=== PATIENT | female | born 1985 | race Caucasian/White ===

== ENCOUNTER 2016-10-14 11:24 | Outpatient (CLI) | payer OTHER | END 2016-10-14 11:25 | disposition home or self-care (01) | DX: M79.89 Other specified soft tissue disorders (principal); Z98.890 Other specified postprocedural states ==

== ENCOUNTER 2017-04-27 09:05 | Outpatient (CLI) | payer OTHER ==
[2017-04-27 11:56] LABS: BASOPHILS # (AUTO) 0.1 10^3/uL (0.0-0.1); EOSINOPHILS # (AUTO) 0.1 10^3/uL (0.0-0.7); EOSINOPHILS % (AUTO) 1.3 %; HCT - HEMATOCRIT 40.2 % (37.0-47.0); HGB - HEMOGLOBIN 13.2 g/dL (12.0-16.0); LYMPHOCYTES # (AUTO) 2.1 10^3/uL (1.5-3.5); LYMPHOCYTES % (AUTO) 19.3 %; MEAN CORPUSCULAR HEMOGLOBIN 31.8 pg (27.0-31.0); MEAN CORPUSCULAR HGB CONC 32.8 g/dL (32.0-36.0); MEAN PLATELET VOLUME 9.1 fL (7.9-10.8); MONOCYTES # (AUTO) 0.5 10^3/uL (0.0-1.0); MONOCYTES % (AUTO) 4.8 %; NEUTROPHILS # (AUTO) 8.1 10^3/uL (1.5-6.6); NEUTROPHILS % (AUTO) 73.6 %; NUCLEATED RED BLOOD CELLS AUTO 0.1 /100WBC; RED BLOOD COUNT 4.15 10^6/uL (4.20-5.40); RED CELL DISTRIBUTION WIDTH 12.3 % (12.0-15.0); UNCORRECTED WHITE BLOOD COUNT 11.1 x10^3/uL; WHITE BLOOD COUNT 11.1 x10^3/uL (4.8-10.8)
[2017-04-27 12:04] LABS: ALBUMIN/GLOBULIN RATIO 1.2 (1.0-2.2); BILIRUBIN,TOTAL 0.4 mg/dL (0.2-1.0); CALCIUM 8.9 mg/dL (8.5-10.3); CREATININE 0.6 mg/dL (0.4-1.0); POTASSIUM 4.4 mmol/L (3.5-5.0); TOTAL PROTEIN 6.9 g/dL (6.7-8.2)
== END 2017-04-27 09:06 | disposition home or self-care (01) ==
LOC: LAB.F 09:05
PROVIDERS: ATTEND Physician Assistant Medical
DX: H92.01 Otalgia, right ear (principal); R59.1 Generalized enlarged lymph nodes; R19.7 Diarrhea, unspecified
CPT/HCPCS: 36415; 80053; 85025

== ENCOUNTER 2019-09-04 09:18 | Outpatient (CLI) | payer OTHER ==
--- NOTE | 2019-09-04 23:19 | Ultrasound Report ---
Reason: POSITIVE TEST Procedure Date: 09/04/2019 Accession Number: [id number] / [id number] Procedure: US - OB First Trimester CPT Code: Final Report FULL RESULT: EXAM: FIRST TRIMESTER OBSTETRIC ULTRASOUND (Less than 11 weeks) EXAM DATE: 09/04/2019 10:07 AM. CLINICAL HISTORY: POSITIVE TEST. Dating. Clinical dates: LMP: 07/01/2019, EGA 9 weeks 2 days, ANY 04/06/20. COMPARISONS: None. TECHNIQUE: Transabdominal and transvaginal ultrasound examination with static image documentation. ASSESSMENT: Gestational Sac: Single intrauterine. Mean gestational sac diameter: 21 mm = 7 weeks 0 days, ANY 04/22/2020. Embryo: CRL (crown-rump length) 14.1 mm = EGA 7 weeks 5 days, ANY 04/17/2020. Cardiac activity: 149 beats per minute. Yolk sac: 3.1 mm. Amniotic fluid: Not accurately assessed at this gestational age. Early placenta: Not visible at this gestational age. Other: No perigestational fluid collection demonstrated. MATERNAL STRUCTURES: Uterus: Anteverted. Unremarkable. Cervix: Closed. Right Ovary/Adnexa: The ovary measures 2.6 x 2.5 x 1.7 cm, volume 5.8 cc. Unremarkable. Left Ovary/Adnexa: The ovary measures 2.3 x 1.2 x 1.5 cm, volume 2.2 cc. Unremarkable. Free Fluid: Small free fluid seen in the posterior cul-de-sac. IMPRESSION: 1. Single living intrauterine . Embryo: CRL (crown-rump length) 14.1 mm = EGA 7 weeks 5 days, ANY 04/17/2020. No acute findings are seen. 2. Small free fluid in the posterior cul-de-sac. RADIA
== END 2019-09-04 09:19 | disposition home or self-care (01) ==
LOC: DI 09:18
PROVIDERS: ATTEND Advanced Practice Midwife
DX: Z32.01 Encounter for pregnancy test, result positive (principal)
CPT/HCPCS: 76801; 76817

== ENCOUNTER 2019-09-22 08:00 | Outpatient (CLI) | payer OTHER ==
[2019-09-22 19:33] LABS: TRICHOMONAS VAGINALIS DNA NEGATIVE (NEGATIVE)
== END 2019-09-22 23:59 | disposition home or self-care (01) ==
LOC: LAB.R 08:00
PROVIDERS: ATTEND Advanced Practice Midwife
DX: Z34.90 Encounter for supervision of normal pregnancy, unspecified, unspecified trimester (principal); Z11.3 Encounter for screening for infections with a predominantly sexual mode of transmission
CPT/HCPCS: 80306; 81001; 87491; 87591; 87661

== ENCOUNTER 2019-09-22 13:26 | Outpatient (CLI) | payer OTHER ==
[2019-09-22 14:50] LABS: MUDS CUTOFF CONCENTRATIONS CUTOFF CONC BELOW:
[2019-09-22 16:34] LABS: BILIRUBIN,URINE NEGATIVE (NEGATIVE); GLUCOSE, URINE (UA) NEGATIVE (NEGATIVE); KETONES,URINE (UA) NEGATIVE (NEGATIVE); LEUKOCYTE ESTERASE, URINE MODERATE (NEGATIVE); NITRITE,URINE NEGATIVE (NEGATIVE); OCCULT BLOOD,URINE NEGATIVE (NEGATIVE); PROTEIN,URINE NEGATIVE (NEGATIVE); UROBILINOGEN,URINE 0.2 (NORMAL) E.U./dL (NORMAL)
[2019-09-22 16:36] LABS: CLARITY,URINE HAZY (CLEAR)
[2019-09-22 16:54] LABS: BACTERIA,URINE Moderate /HPF (None Seen); RBC,URINE 0-5 /HPF (0-5); SQUAMOUS EPITHELIAL CELL,UR MANY Squamous (<= Few)
[2019-09-22 16:59] LABS: AMPHETAMINE SCREEN,URINE NEGATIVE (NEGATIVE); BENZODIAZEPINES SCREEN, URINE NEGATIVE (NEGATIVE); COCAINE SCREEN URINE NEGATIVE (NEGATIVE); METHADONE SCREEN, URINE NEGATIVE (NEGATIVE); METHAMPHETAMINES SCREEN, URINE NEGATIVE (NEGATIVE); OPIATE SCREEN, URINE NEGATIVE (NEGATIVE); OXYCODONE SCREEN, URINE NEGATIVE (NEGATIVE); PROPOXYPHENE SCREEN, URINE NEGATIVE (NEGATIVE); TRICYCLIC ANTIDEPRESSANT,URINE NEGATIVE (NEGATIVE)
== END 2019-09-22 23:59 | disposition home or self-care (01) ==
LOC: LAB.WCP 13:26
PROVIDERS: ATTEND Advanced Practice Midwife
DX: Z34.90 Encounter for supervision of normal pregnancy, unspecified, unspecified trimester (principal)
CPT/HCPCS: 80306; 81001; 87086

== ENCOUNTER 2019-10-08 09:04 | Outpatient (CLI) | payer OTHER ==
[2019-10-08 09:26] LABS: BASOPHILS % (AUTO) 0.4 %; EOSINOPHILS # (AUTO) 0.1 10^3/uL (0.0-0.7); EOSINOPHILS % (AUTO) 0.6 %; HGB - HEMOGLOBIN 12.3 g/dL (12.0-16.0); LYMPHOCYTES # (AUTO) 1.9 10^3/uL (1.5-3.5); LYMPHOCYTES % (AUTO) 18.9 %; MEAN CORPUSCULAR HEMOGLOBIN 33.2 pg (27.0-31.0); MEAN CORPUSCULAR HGB CONC 33.6 g/dL (32.0-36.0); MEAN CORPUSCULAR VOLUME 98.9 fL (81.0-99.0); MEAN PLATELET VOLUME 10.8 fL (7.9-10.8); MONOCYTES # (AUTO) 0.6 10^3/uL (0.0-1.0); MONOCYTES % (AUTO) 5.6 %; NEUTROPHILS # (AUTO) 7.2 10^3/uL (1.5-6.6); NEUTROPHILS % (AUTO) 74.1 %; PLT - PLATELET COUNT 202 10^3/uL (130-450); RED CELL DISTRIBUTION WIDTH 12.8 % (12.0-15.0); WHITE BLOOD COUNT 9.8 x10^3/uL (4.8-10.8)
[2019-10-09 08:20] LABS: HIV AG/AB 4TH GEN NON-REACTIVE (NON-REACTIVE)
[2019-10-09 09:34] LABS: HEPATITIS B SURFACE ANTIGEN NON-REACTIVE (NON-REACTIVE); HEPATITIS C ANTIBODY NON-REACTIVE (NON-REACTIVE)
== END 2019-10-08 09:05 | disposition home or self-care (01) ==
LOC: LAB 09:04
PROVIDERS: ATTEND Advanced Practice Midwife
DX: Z34.90 Encounter for supervision of normal pregnancy, unspecified, unspecified trimester (principal); Z36.89 Encounter for other specified antenatal screening
CPT/HCPCS: 36415; 81220; 81599; 85025; 86592; 86762; 86803; 86850; 86900; 86901; 87340; 87389

== ENCOUNTER 2019-11-17 08:00 | Outpatient (CLI) | payer OTHER | END 2019-11-17 23:59 | disposition home or self-care (01) | LOC: LAB.WCP 08:00 | PROVIDERS: ATTEND Advanced Practice Midwife | DX: Z34.90 Encounter for supervision of normal pregnancy, unspecified, unspecified trimester (principal); Z36.89 Encounter for other specified antenatal screening | CPT/HCPCS: 36415; 81220; 81243; 81329; 81511; 81599 ==

== ENCOUNTER 2019-11-24 08:05 | Outpatient (CLI) | payer OTHER ==
--- NOTE | 2019-11-24 10:16 | Ultrasound Report ---
Reason: SUPERVISION OF NORMAL Procedure Date: 11/24/2019 Accession Number: [id number] / [id number] Procedure: US - OB Detailed Eval CPT Code: Final Report FULL RESULT: PROCEDURE: OB Detailed Eval INDICATIONS: SUPERVISION OF NORMAL OUTSIDE/PRIOR DATING DATA: Last menstrual period (LMP): 07/01/2019. LMP-based estimated date of delivery (ANY): 04/06/2020. First dating scan (date and location): 09/04/2019. Estimated date of delivery (ANY) from first dating scan: 04/17/2020. TECHNIQUE: Real-time scanning was performed of the fetus, with image documentation and biometric measurements. Endovaginal scanning: Not performed. COMPARISON: OB ultrasound 09/04/2019. FINDINGS: General: A single living intrauterine gestation is present. Presentation: Vertex. Placenta: Placental position is anterior, without previa. Amniotic fluid index: 13 cm, normal for gestational age. heart rate: 143 beats per minute. Maternal cervical canal: 5.4 cm long; normal length is 2.5 cm or more. biometrics: Biparietal diameter: 4.78 cm. 20 weeks 3 days. Head circumference: 17.48 cm. 20 weeks 0 days. Abdominal circumference: 14.5 cm. 19 weeks 6 days. Femur length: 13.03 cm. 19 weeks 3 days. Estimated gestational age from initial scan: 19 weeks 2 days. Composite gestational age from present scan: 20 weeks 0 days Estimated weight and percentile: 306 g. 68.8 percentile. Measurement variability in biometric dating: +/- 10 days from 12-20 weeks gestation, +/- 2 weeks from 20-30 weeks gestation, +/- 3 weeks at 30 weeks gestation or later. Anatomic survey: Neuro: Ventricles are normal at less than 10 mm. Cisterna magna is normal at 3-11 mm. Cerebellum is normal in size and morphology. Nuchal skin fold: Normal at less than 6 mm between 14 and 20 weeks gestational age. Face: Nose and lips, facial profile are normal. Spine: No evidence for spina bifida. Heart: 4-chambered heart is present, with normal ventricular outflow tracts. Diaphragm: Diaphragm is intact. Stomach: Left-sided stomach is present. Kidneys: No hydronephrosis. Normal is less than 5 mm in 2nd trimester, less than 7 mm in 3rd trimester. Cord: 3 vessel cord has orthotopic insertion. Bladder: Normal in size. Extremities: All 4 extremities are visualized. IMPRESSION: 1. [place] living intrauterine at 20 weeks 0 days based on today's ultrasound. This is concordant with the first trimester ultrasound. There is expected interval growth. 2. Normal placenta and amniotic fluid. 3. Normal and complete anatomic survey. Reviewed by: Jordan Rios MD on 11/24/2019 10:15 AM PDT Approved by: Jordan Rios MD on 11/24/2019 10:15 AM PDT Station ID: [id number]
== END 2019-11-24 08:06 | disposition home or self-care (01) ==
LOC: DI 08:05
PROVIDERS: ATTEND Advanced Practice Midwife
DX: Z34.92 Encounter for supervision of normal pregnancy, unspecified, second trimester (principal)
CPT/HCPCS: 76811

== ENCOUNTER 2019-11-26 10:43 | Outpatient (CLI) | payer SELFPAY | END 2019-11-26 10:44 | disposition home or self-care (01) | LOC: LAB 10:43 | DX: Z01.89 Encounter for other specified special examinations (principal) | CPT/HCPCS: 36415 ==

== ENCOUNTER 2020-03-24 08:00 | Outpatient (CLI) | payer OTHER | END 2020-03-24 23:59 | disposition home or self-care (01) | LOC: LAB.R 08:00 | PROVIDERS: ATTEND Advanced Practice Midwife | DX: Z34.90 Encounter for supervision of normal pregnancy, unspecified, unspecified trimester (principal); Z36.85 Encounter for antenatal screening for Streptococcus B | CPT/HCPCS: 87797 ==

== ENCOUNTER 2020-04-18 21:19 | Inpatient (IN) | payer OTHER ==
[2020-04-18 21:50] LABS: RUPTURE OF MEMBRANES PLUS POSITIVE (NEGATIVE)
[2020-04-18] MEDS ORDERED: miSOPROStoL 200 MCG TABLET BC PRN (21:56)
[2020-04-18] MEDS ORDERED: OXYTOCIN 10 UNIT/ML VIAL IM PRN (21:56)
[2020-04-18] MEDS ORDERED: LIDOCAINE-MPF 1% 30 ML VIAL ID PRN (21:56)
[2020-04-18] MEDS ORDERED: TRANEXAMIC ACID 1,000 MG in SODIUM CHLORIDE 0.9% 100ML 100 ML IV PRN (21:56)
[2020-04-18] MEDS ORDERED: SODIUM CHLORIDE FLUSH 0.9% 10 ML SYRINGE IVP PRN (21:56)
[2020-04-18] MEDS ORDERED: fentaNYL 100 MCG/2 ML VIAL IVP PRN (21:56)
[2020-04-18] MEDS ORDERED: OXYTOCIN/SODIUM CHLORIDE 500 ML IV PRN (21:56)
[2020-04-18] MEDS ORDERED: CARBOPROST TROMETHAMINE 250 MCG/ML AMP IM PRN (21:56)
[2020-04-18] MEDS ORDERED: METHYLERGONOVINE 0.2 MG/ML VIAL IM PRN (21:56)
[2020-04-18] MEDS ORDERED: LACTATED RINGERS 1,000 ML IV SCH (22:00)
[2020-04-18 22:47] LABS: BASOPHILS # (AUTO) 0.1 10^3/uL (0.0-0.1); BASOPHILS % (AUTO) 0.3 %; EOSINOPHILS # (AUTO) 0.2 10^3/uL (0.0-0.7); EOSINOPHILS % (AUTO) 1.2 %; HGB - HEMOGLOBIN 12.9 g/dL (12.0-16.0); LYMPHOCYTES # (AUTO) 2.5 10^3/uL (1.5-3.5); LYMPHOCYTES % (AUTO) 16.3 %; MEAN CORPUSCULAR HEMOGLOBIN 33.3 pg (27.0-31.0); MEAN CORPUSCULAR HGB CONC 33.5 g/dL (32.0-36.0); MEAN CORPUSCULAR VOLUME 99.5 fL (81.0-99.0); MEAN PLATELET VOLUME 11.8 fL (7.9-10.8); MONOCYTES # (AUTO) 1.2 10^3/uL (0.0-1.0); MONOCYTES % (AUTO) 7.7 %; NEUTROPHILS # (AUTO) 11.2 10^3/uL (1.5-6.6); NEUTROPHILS % (AUTO) 73.6 %; PLT - PLATELET COUNT 200 10^3/uL (130-450); RED BLOOD COUNT 3.87 10^6/uL (4.20-5.40); RED CELL DISTRIBUTION WIDTH 14.6 % (12.0-15.0); WHITE BLOOD COUNT 15.2 x10^3/uL (4.8-10.8)
--- NOTE | 2020-04-18 23:44 | DELIVERY NOTE ---
Delivery Note - Labor Labor: positive: Spontaneous - Delivery Method Delivery Method: positive: Spontaneous vaginal delivery - Presentation Presentation: positive: Vertex - Nuchal Cord Nuchal Cord: positive: None - Anesthetic Anesthetic Type: - Amniotic Fluid Description Amniotic Fluid Description: positive: Clear - Episiotomy Type Episiotomy Type: positive: None - Laceration Laceration: positive: 1st degree (Not entirely through skin layer, hemostatic, suturing not required) - Delivery Outcome Delivery Outcome: positive: Livebirth - : positive: Placed in direct skin contact with mother, Stimulated, Warmed, [place] used Terry sex: positive: Female : Apgars 7/9 - Cord Cord: positive: 3 vessels - Placenta Placenta: positive: Intact, Spontaneous - Estimated Blood Loss Estimated Blood Loss (in cc): 50 - Post Delivery Events Post Delivery Events: positive: No post delivery events - Delivery Comments (Free Text/Narrative) Delivery Comments (Free Text/Narrative): Presented following SROM clear at home, contractions were spontaneous, FHTs reassuring. Progressed rapidly to complete and pushed effectively to deliver. Uncomplicated delivery. Plan for tubal tomorrow.
[2020-04-18] MEDS ORDERED: IBUPROFEN 600 MG TABLET PO SCH (23:45)
[2020-04-18] MEDS ORDERED: WITCH HAZEL/GLYCERIN 1 PAD TOP PRN (23:52)
[2020-04-18] MEDS ORDERED: ONDANSETRON 4 MG/2 ML VIAL IVP PRN (23:52)
[2020-04-18] MEDS ORDERED: HYDROCORTISONE 1% CREAM 28 GM TUBE PR PRN (23:52)
--- NOTE | 2020-04-19 00:07 | HISTORY & PHYSICAL EXAMINATION ---
History of Present Illness - History of Present Illness HPI Comment/Other: CC: broken bag of water? HPI: felt a pop at home and then had a gush of clear fluid down her leg. Went to the bathroom and continued to gush. Called answering service and was advised to come in. No VB and no UC at home. Gopd FM. LOF was around 20:00 ROS: no fevers. Some coughing at home. PMH: neg PSH: ORIF forearms 2006, hernia repair 12yo SH: no t/e/d FH: no genetic problems Allergies: NKDA Meds: PNV, iron OB: ANY 04/17 by 7w US off 11d from LMP A+, RI, , GBS neg, STI neg, Hct 31. Nl cotest 05/2018. 1h 146, all values of 3h were normal S/p Tdap. Declined flu shot. QS + for down syndrome; harmony was normal Normal carrier screening Normal anatomy scan O: AVSS, Category 1 NST, G[employer] q 2-4, vertex, 4cm on admit Rom test was + A/P: 34yo at 40w1d with spontaneous labor following SROM clear a few hours ago. Category 1 tracing, Vtx, GBS neg. Fetus: normal anatomy scan. QS abnormal but cell free DNA was normal Hx of "bleeding" after delivery: hemorrhage meds in room and active mgmt of 3rd stage planned : desires PPTL, papers are mature. Rh+, RI/. Offer flu vax again, she is s/p Tdap. Pap due [id number]. Anticipate Meds/Allgy - Allergies Allergies/Adverse Reactions: Allergies Allergy/AdvReac Type Severity Reaction Status Date / Time No Known Drug Allergies Allergy Verified 03/28/15 02:23 Exam - Vital Signs Vital Signs: Vital Signs x48h Temp Pulse Pulse Resp BP BP Pulse Ox 04/18/20 22:16 98.5 F 65 157/75 H 04/18/20 21:28 98.1 F 69 16 128/67 98 Conclusion/Plan - Lab Results Fish Bones: 04/18/20 22:30
[2020-04-19] MEDS ORDERED: OXYTOCIN/SODIUM CHLORIDE 500 ML IV PRN (01:00)
[2020-04-19] MEDS ORDERED: SODIUM CHLORIDE FLUSH 0.9% 10 ML SYRINGE IVP SCH ×2 (01:00→17:00)
[2020-04-19] MEDS ORDERED: DEXTROSE 5%-LACTATED RINGERS 1,000 ML IV SCH (04:00)
[2020-04-19] MEDS ORDERED: SIMETHICONE CHEW 80 MG TABLET PO SCH (06:00)
--- NOTE | 2020-04-19 08:04 | ANESTHESIA ---
Pre-Anesthesia VS, & Labs - Diagnosis desires sterilization - Procedure PPTL Vital Signs: Temp Pulse Resp BP Pulse Ox 37.4 C 63 15 116/55 L 99 04/19/20 05:08 04/19/20 05:08 04/19/20 05:08 04/19/20 05:08 04/19/20 05:08 Height: 5 ft 4 in Weight (kg): 69.4 kg Body Mass Index: 26.2 BMI Classification: Overweight - NPO Other (had ~12 oz of (oj, cranberry juice, apple juice, sprite)) - Is Patient ?: No - Lab Results Current Lab Results: Laboratory Tests 04/18/20 22:30: WBC 15.2 H, RBC 3.87 L, Hgb 12.9, Hct 38.5, MCV 99.5 H, MCH 33.3 H, MCHC 33.5, RDW 14.6, Plt Count 200, MPV 11.8 H, Neut # (Auto) 11.2 H, Lymph # (Auto) 2.5, [place] # (Auto) 1.2 H, Eos # (Auto) 0.2, Baso # (Auto) 0.1, Absolute Nucleated RBC 0.00, Nucleated RBC % 0.0 04/18/20 22:30: Blood Type A POSITIVE, Antibody Screen NEGATIVE Lab results reviewed: Yes Fish Bones: 04/18/20 22:30 Home Medications and Allergies Active Medications Docusate Sodium (Colace 100mg Capsule) 100 mg PO BID RONNIE Hydrocortisone (Hydrocortisone) 1 applic IN QID PRN PRN Reason: Hemorrhoids Dextrose/Lactated Ringer's (D5lr) 1,000 mls @ 100 mls/hr IV .Q10H RONNIE Oxytocin/Sodium Chloride (Pitocin/Sodium Chloride) 500 mls @ 125 mls/hr IV PRN PRN; Protocol PRN Reason: POST- HEMORR PREVENTION Last Titration: 04/19/20 05:46 Dose: Infused Documented by: Ibuprofen (Motrin) 600 mg PO Q6H RONNIE Ondansetron HCl (Zofran Inj) 4 mg IVP Q4H PRN PRN Reason: Nausea / Vomiting Simethicone (Mylicon) 80 mg PO TID RONNIE Witch Zahra/Glycerin (Tucks) 1 pad TOP QID PRN PRN Reason: ITCHING Allergies/Adverse Reactions: Allergies Allergy/AdvReac Type Severity Reaction Status Date / Time No Known Drug Allergies Allergy Verified 03/28/15 02:23 Anes History & Medical History - Anesthetic History Anesthesia Complications: reports: No previous complications Family history of Anesthesia Complications: Denies Family history of Malignant Hyperthermia: Denies - Medical History Cardiovascular: reports: None Pulmonary: reports: None Gastrointestinal: reports: None Urinary: reports: None Neuro: reports: None Musculoskeletal: reports: None Endocrine/Autoimmune: reports: None Blood Disorders: reports: None Skin: reports: None Smoking Status: Current every day smoker Psychosocial: reports: No issues indicated Exam General: Alert, Oriented x3, Cooperative, No acute distress Dental: WNL Mouth Openin Fingerbreadth Neck Mobility: Normal Mallampati classification: I Respiratory: Lungs clear, Normal breath sounds, No respiratory distress, No accessory muscle use Cardiovascular: Regular rate, Normal S1, Normal S2, No murmurs Plan Anesthesia Type: General (patient requested general) Consent for Procedure(s) Verified and Reviewed: Yes Code Status: Attempt Resuscitation ASA classification: 2-Mild systemic disease Is this case an emergency?: No
[2020-04-19] MEDS ORDERED: NALOXONE 0.4 MG/ML VIAL IVP PRN (08:35)
[2020-04-19] MEDS ORDERED: HYDROmorphone 0.5 MG/0.5 ML SYRINGE IVP PRN (08:35)
[2020-04-19] MEDS ORDERED: MORPHINE 2 MG/ML CARPUJECT IVP PRN (08:35)
[2020-04-19] MEDS ORDERED: ATROPINE ABBOJECT 1 MG/10 ML SYRINGE IVP PRN (08:35)
[2020-04-19] MEDS ORDERED: ONDANSETRON 4 MG/2 ML VIAL IVP PRN (08:35)
[2020-04-19] MEDS ORDERED: METOCLOPRAMIDE 10 MG/2 ML VIAL IVP PRN (08:35)
[2020-04-19] MEDS ORDERED: ePHEDrine 50 MG/ML VIAL IVP PRN (08:35)
[2020-04-19] MEDS ORDERED: fentaNYL 100 MCG/2 ML VIAL IVP PRN (08:35)
[2020-04-19] MEDS ORDERED: CITRIC ACID/SODIUM CITRATE 15 ML UDC PO ONE (08:55)
[2020-04-19] MEDS ORDERED: DOCUSATE SODIUM 100 MG CAPSULE PO SCH (09:00)
[2020-04-19] MEDS ORDERED: LACTATED RINGERS 1,000 ML IV SCH (09:00)
--- NOTE | 2020-04-19 09:00 | PROVIDER PROGRESS NOTE ---
Subjective - Subjective Subjective: Feeling well, totally sure about sterilization. Some right nipple bleeding--hard to see the baby's latch. Ambulate and urinate OK, no heavy bleeding AVSS Alert, smiling, cuddling baby, NAD Abd soft, nt/nd A/P: 34yo P2 PPD # 1/2 s/p at term, doing very well. Plan for bilateral salpingectomy now for permanent sterilization. Pt is 100% sure and declines reversible methods. discussed risks including bleeding, infection, trauma to local organs, anesthesia complications, and failure of sterilization. If feels check UPT. If is get medical care that day. All questions answered and consent signed. Objective - Vital Signs/Intake & Output Vital Signs: Vital Signs x48h Temp Pulse Resp BP Pulse Ox 04/19/20 07:47 99.0 F 59 L 18 111/58 L 97 04/19/20 05:08 99.3 F 63 15 116/55 L 99 04/19/20 01:57 59 L Intake & Output: Intake & Output 04/17/20 04/18/20 04/18/20 04/19/20 00:59 00:59 23:59 23:59 Intake Total 500 Output Total 700 Balance -200 - Lab Results Fish Bones: 04/18/20 22:30 Other Labs: Lab Results x24hrs 04/18/20 04/18/20 04/18/20 Range/Units 22:30 22:30 21:44 WBC 15.2 H (4.8-10.8) x10^3/uL RBC 3.87 L (4.20-5.40) 10^6/uL Hgb 12.9 (12.0-16.0) g/dL Hct 38.5 (37.0-47.0) % MCV 99.5 H (81.0-99.0) fL MCH 33.3 H (27.0-31.0) pg MCHC 33.5 (32.0-36.0) g/dL RDW 14.6 (12.0-15.0) % Plt Count 200 (130-450) 10^3/uL MPV 11.8 H (7.9-10.8) fL Neut # (Auto) 11.2 H (1.5-6.6) 10^3/uL Lymph # (Auto) 2.5 (1.5-3.5) 10^3/uL [place] # (Auto) 1.2 H (0.0-1.0) 10^3/uL Eos # (Auto) 0.2 (0.0-0.7) 10^3/uL Baso # (Auto) 0.1 (0.0-0.1) 10^3/uL Absolute Nucleated RBC 0.00 x10^3/uL Nucleated RBC % 0.0 /100WBC Membranes Rupture POSITIVE A (NEGATIVE) Blood Type A POSITIVE Antibody Screen NEGATIVE
[2020-04-19] MEDS ORDERED: ONDANSETRON 4 MG/2 ML VIAL IVP ONE (09:13)
[2020-04-19] MEDS ORDERED: HYDROmorphone 1 MG/ML CARPUJECT IVP ONE (09:13)
[2020-04-19] MEDS ORDERED: PROPOFOL 200 MG/20 ML VIAL IVP ONE (09:13)
[2020-04-19] MEDS ORDERED: fentaNYL 100 MCG/2 ML VIAL IVP ONE (09:13)
[2020-04-19] MEDS ORDERED: KETOROLAC 30 MG/ML VIAL IVP ONE (09:13)
[2020-04-19] MEDS ORDERED: SUCCINYLCHOLINE 200 MG/10 ML VIAL IVP ONE (09:13)
[2020-04-19] MEDS ORDERED: DEXAMETHASONE 4 MG/ML VIAL IVP ONE (09:13)
[2020-04-19] MEDS ORDERED: MIDAZOLAM 2 MG/2 ML VIAL IVP ONE (09:13)
[2020-04-19] MEDS ORDERED: LIDOCAINE 2%-EPI 1:100000 20 ML MDV SUBQ ONE ×2 (09:43)
[2020-04-19] MEDS ORDERED: BUPIVACAINE 0.5% PF 30 ML VIAL INFIL ONE ×2 (09:43)
[2020-04-19] MEDS ORDERED: BUPIVACAINE 0.5% PF 30 ML VIAL ONE (09:45)
[2020-04-19] MEDS ORDERED: LIDOCAINE 2%-EPI 1:100000 20 ML MDV ONE (09:45)
[2020-04-19] MEDS ORDERED: LACTATED RINGERS 1,000 ML IV ONE (10:28)
--- NOTE | 2020-04-19 10:30 | OPERATIVE REPORT ---
Operative Report - General Admit Date: 04/18/20 Procedure Performed: Preop: desires sterilization Postop: same Procedure: bilat salpingectomy Surg: Nuzhat Assist: none Anesthesia: spinal --> general EBL 2cc IVF 900cc Comp: none Dispo: PACU Specimens: tubes bilat Findings: normal tubes
[2020-04-19] MEDS ORDERED: oxyCODONE 5 MG TABLET PO PRN (11:10)
[2020-04-19] MEDS ORDERED: SODIUM CHLORIDE FLUSH 0.9% 10 ML SYRINGE IVP PRN (11:10)
[2020-04-19] MEDS ORDERED: diphenhydrAMINE 25 MG CAPSULE PO PRN (11:10)
--- NOTE | 2020-04-19 12:01 | ANESTHESIA POST OP EVALUATION ---
Anesthesia Post Eval - Post Anesthesia Eval Vitals: Last Vital Signs Temp 36.8 C 04/19/20 10:54 Pulse 53 L 04/19/20 11:30 Resp 18 04/19/20 11:30 BP 117/70 04/19/20 11:30 Pulse Ox 97 04/19/20 11:30 CV Function Including HR & BP: positive: Stable Pain Control: positive: Satisfactory Nausea & Vomiting: positive: Negative Mental Status: positive: Baseline Respiratory Status: Airway Patent Hydration Status: Satisfactory Anesthesia Complications: positive: None
--- NOTE | 2020-04-19 12:36 | OPERATIVE REPORT ---
DATE OF SERVICE: 04/19/2020 Physician: Sujatha Noland MD PREOPERATIVE DIAGNOSIS: Desires permanent surgical sterilization. POSTOPERATIVE DIAGNOSIS: Desires permanent surgical sterilization. PROCEDURE: Bilateral salpingectomy, . SURGEON: Sujatha Noland MD STUDENT UNION CONSULTANT: None. ANESTHESIA: Spinal, converted to general. ESTIMATED BLOOD LOSS: 2 mL. INTRAVENOUS FLUIDS: 900 mL. URINE OUTPUT: Not applicable. COUNTS: Correct x2. COMPLICATIONS: None apparent. DISPOSITION: Stable to the recovery room. SPECIMENS: Bilateral fallopian tubes to pathology. PROPHYLAXIS: SCDs to bilateral lower extremities. No antibiotics indicated. FINDINGS: Normal fallopian tubes bilaterally. COUNSELING: The patient affirmed her desire for no further children and declined reversible options for contraception. She was advised that tubal ligations can fail. If she feels , she must t vish a test and if she is , she needs immediate medical care. DESCRIPTION OF PROCEDURE: The patient was brought to the operating room, where she underwent spinal anesthesia. She was prepped and draped in the usual sterile fashion. A skin test revealed persisten t sensation. The decision was made to convert to general anesthesia. Local was injected prior to an d at the end of the procedure; 0.5% Marcaine with 1% lidocaine with epinephrine. A scalpel was used to make a semilunar incision in the inferior portion of the umbilicus. The fascia was elevated and i ncised with Clark scissors. The peritoneum was entered sharply. [place] retractors were used to vi sualize the fallopian tubes after Trendelenburg positioning was performed. The right fallopian tube was identified, grasped, and elevated out of the incision. The fallopian tube was walked down to its fimbriated end. The LigaSure was used to divide the fallopian tube from the mesosalpinx. The fallo pian tube was amputated about 1 cm away from the uterine cornua. There was a little bit of bleeding from the right stump, this was cauterized with a Bovie and great hemostasis resulted. Attention was paid to the contralateral side where the same procedure was performed. That side was hemostatic and no Bovie was required. The fascia was grasped, and elevated with Kochers. The fascial incision was closed with a running layer of 0 Vicryl. The skin was closed with a running subcuticular stitch of 4 -0 Monocryl. Dermabond was then applied. The patient tolerated the procedure well. There were no c omplications. TD: 04/19/2020 10:38
[2020-04-19] MEDS: ACETAMINOPHEN 500 MG TABLET PO SCH ×2 (13:08→20:54)
[2020-04-19] MEDS: DOCUSATE SODIUM 100 MG CAPSULE PO SCH (20:53)
[2020-04-19] MEDS: IBUPROFEN 600 MG TABLET PO SCH (20:55)
[2020-04-20] MEDS: IBUPROFEN 600 MG TABLET PO SCH ×2 (01:13→07:51)
[2020-04-20] MEDS: ACETAMINOPHEN 500 MG TABLET PO SCH (06:31)
[2020-04-20 06:44] VITALS: BP 115/56
[2020-04-20] MEDS: DOCUSATE SODIUM 100 MG CAPSULE PO SCH (07:51)
--- NOTE | 2020-04-20 08:52 | Discharge Plan ---
Discharge Plan Problem Reviewed?: Yes Disposition: Home, Self Care Condition: Good Diet: Regular Activity Restrictions: No lifting more than 10# Shower Restrictions: No No Smoking: If you smoke, Please STOP! Call for help. Follow-up with: Sujatha Noland MD [Provider Admit Priv/Credential] - 1 Week
--- NOTE | 2020-04-20 09:44 | DISCHARGE SUMMARY ---
Physician: Sujatha Noland MD DATE OF ADMISSION: 04/18/2020 DATE OF DISCHARGE: 04/20/2020 ADMISSION DIAGNOSES 1. Spontaneous labor at 40 weeks 1 day. 2. Desires permanent surgical sterilization. DISCHARGE DIAGNOSES 1. Status post spontaneous vaginal delivery. 2. Status post sterilization. PROCEDURES 1. On 04/18/2020 spontaneous vaginal delivery of a liveborn female, uncomplicated. 2. On 04/19/2020 salpingectomy, bilateral. HOSPITAL COURSE: The patient was admitted in active spontaneous labor and delivered a few hours afte r arrival, uncomplicated. She desired tubal ligation and was 100% sure about her decision and so she underwent bilateral salpingectomy. The following day, she had some voiding dysfunction postoperativ leila. She required one in-and-out catheterization due to inability to void and a bladder scan of 500 mL. Following this, she had normal voiding and she reported complete emptying of her bladder. By po stpartum day 2, she was requesting to go home. She was eating, ambulating, and urinating without dif ficulty. Her mood was good. No problems with heavy bleeding or pain control. PHYSICAL EXAMINATION VITAL SIGNS: She is afebrile with normal vital signs. GENERAL: Alert and smiling, cuddling the baby, in no apparent distress. ABDOMEN: Soft, nontender, nondistended. Fundus firm, nontender, and at the umbilicus. The tubal in cision was clean, dry, and intact. There were some surrounding vale skin changes without warmth or i nduration, consistent with operative manipulation. Precautions were given regarding cellulitisraj to notify us in case of deepening redness, warmth, or change in the consistency of the tissue. Otherwise, she was discharged home with routine precautions. DISCHARGE DISPOSITION: Home. CONDITION: Good. FOLLOWUP: In 1 week at [facility]. PRESCRIPTIONS: Five tablets of 5 mg of oxycodone were given. TD: 04/20/2020 09:00
--- NOTE | 2020-04-20 11:25 | Labor Flowsheet ---
Labor Flowsheet Datetime Report Generated by CPN: 04/20/2020 11:24 Datetime: 04/20/2020 09:22 VITAL SIGNS NBP Sys/Liliana/Mean (mmHg): 114 : 61 : 72 Pulse: 60 Datetime: 04/19/2020 15:04 SpO2 (%): 97 Datetime: 04/18/2020 23:57 PAIN Pain Scale: 0 Pain Presence: None/Denies Pain Type: N/A Datetime: 04/18/2020 23:44 Membranes Ruptured Date/Time: 04/18/2020 20:00 Membranes Rupture Method: Spontaneous Amniotic Fluid Color: Clear Amniotic Fluid Amount: Small Amniotic Fluid Odor: Normal Datetime: 04/18/2020 23:38 Stage of : Recovery Datetime: 04/18/2020 23:37 LaborFlag: Labor Datetime: 04/18/2020 23:23 UTERINE ACTIVITY Monitor Mode: External Frequency (min): 1.5 Quality: Strong Duration (sec): 80-100 Pattern: Normal: <= 5 Contractions in 10 Minutes Resting Tone (Palpate): Relaxed ASSESSMENT A Monitor Mode: Telemetry FHR Baseline Rate : 150 Variability: Moderate 6-25 bpm Accelerations: None Decelerations: Variable Category: Category II Datetime: 04/18/2020 23:15 Comments: indeterminate basline, FHT 130s-150s Datetime: 04/18/2020 23:10 COMMUNICATION Communication: Provider at Bedside Provider Notified (Name): Nuhzat Communication Comments: attend delivery _ Datetime: 04/18/2020 23:06 Comfort Measures: Breathing/Relaxation Datetime: 04/18/2020 23:03 STAGE 2 Pushing: Urge to Push Datetime: 04/18/2020 23:00 VAGINAL EXAM Dilatation (cm): 10.0 Effacement (%): 100 Station: 0 Exam by: Nu Randolph, RN Datetime: 04/18/2020 22:53 Notification Reason: Labor Status Datetime: 04/18/2020 22:38 Patient Care Comments: getting out of bed to use ball Datetime: 04/18/2020 22:25 PATIENT CARE IV/Blood Work: IV Started; Labs Drawn with IV Start; IV Saline Locked Datetime: 04/18/2020 22:18 Pain Coping: Talking Through Contractions; Breathing Through Contractions Vaginal Bleeding: None MATERNAL ASSESSMENT Level of Consciousness: Alert DTR's/Clonus: DTRs 2+; No Clonus Headache: Denies Breath Sounds, Left: Clear and Equal Breath Sounds, Right: Clear and Equal Nausea/Vomiting: Denies RUQ Epigastric Pain: Denies
[2020-04-20] MEDS ORDERED: IBUPROFEN 600 MG TABLET PO SCH (12:00)
== END 2020-04-20 10:52 | disposition home or self-care (01) | DRG 798 ==
LOC: WFO 21:19 → FBP 21:21 → WFO 21:55 → FBP 21:56
PROVIDERS: ADMIT Obstetrics & Gynecology; ATTEND Obstetrics & Gynecology
PROC: 10E0XZZ Delivery of Products of Conception, External Approach (ICD-10-PCS; principal; 2020-04-18)
PROC: 0UT70ZZ Resection of Bilateral Fallopian Tubes, Open Approach (ICD-10-PCS; 2020-04-19)
DX: O70.0 First degree perineal laceration during delivery (principal); Z37.0 Single live birth; Z3A.40 40 weeks gestation of pregnancy; Z30.2 Encounter for sterilization; R33.9 Retention of urine, unspecified
CPT/HCPCS: 84112; 85025; 86850; 86900; 86901; 99213; A9270; J0330; J1170; J7120